=== PATIENT | male | born 1955 | race Hispanic/Latino ===

== ENCOUNTER 2020-01-02 06:45 | Day surgery (SDC) | payer MEDICARE ==
[2019-12-29 11:47] LABS: BASOPHILS % (AUTO) 0.3 % (0.0-5.0); EOSINOPHILS % (AUTO) 1.3 % (0.0-8.0); HEMATOCRIT 43.7 % (42-54); LYMPHOCYTES % (AUTO) 26.3 % (21.0-51.0); MEAN CORPUSCULAR HEMOGLOBIN 33.5 pg (27.0-33.0); MEAN CORPUSCULAR HGB CONC 34.1 g/dL (32.0-36.0); MEAN CORPUSCULAR VOLUME 98.2 fL (79-99); MONOCYTES % (AUTO) 7.6 % (3.0-13.0); NEUTROPHILS % (AUTO) 64.2 % (40.0-77.0); PLATELET COUNT (AUTO) 226 K/uL (130-400); RED BLOOD CELL COUNT(AUTO) 4.45 MIL/uL (4.50-6.20); WHITE BLOOD COUNT (AUTO) 6.9 K/uL (4.8-10.8)
[2019-12-29 12:01] LABS: CREATININE 0.9 mg/dL (0.5-1.5); POTASSIUM 3.9 mmol/L (3.5-5.1)
[2019-12-29 12:06] LABS: INR 1.04 (0.85-1.15); PARTIAL THROMBOPLASTIN TIME 27.9 SEC (26.3-35.5); PROTHROMBIN TIME 11.2 SEC (9.6-11.6)
[2020-01-01 13:14] VITALS: BP 148/77
[2020-01-02] VITALS (9 sets, daily range): BP systolic 112–160; BP diastolic 72–88
[~2020-01-02] VITALS: Ht 162.6 cm; Wt 93.1 kg
[2020-01-02] MEDS ORDERED: SODIUM CHLORIDE 0.9% 1000ML 1,000 ML IV SCH (08:00)
[2020-01-02] MEDS ORDERED: CLOP75TA14 PO (08:37)
[2020-01-02] MEDS ORDERED: DILT180C86 PO (08:37)
[2020-01-02] MEDS ORDERED: ATOR40TA71 PO (08:37)
[2020-01-02] MEDS ORDERED: APIX5TAB PO (08:37)
[2020-01-02] MEDS ORDERED: HEPARIN SODIUM 1000UNIT/ML 10ML VIAL ONE (09:34)
[2020-01-02] MEDS ORDERED: MIDAZOLAM HCL 1 MG/ML 2ML VIAL ONE ×2 (09:34→10:13)
[2020-01-02] MEDS ORDERED: MEPERIDINE-PF 25 MG/ML SYG ONE ×2 (09:34→10:13)
[2020-01-02] MEDS ORDERED: LIDOCAINE HCL 2% 20ML ONE (09:35)
== END 2020-01-02 16:00 | disposition home or self-care (01) ==
LOC: CANPRESDC → DAH 06:45 → EDSTATUS 07:00 → DAH 16:00
PROVIDERS: ATTEND Internal Medicine Cardiovascular Disease
DX: I48.3 Typical atrial flutter (principal); I10 Essential (primary) hypertension; I21.4 Non-ST elevation (NSTEMI) myocardial infarction; E11.59 Type 2 diabetes mellitus with other circulatory complications; E78.00 Pure hypercholesterolemia, unspecified; Z79.899 Other long term (current) drug therapy
CPT/HCPCS: 36415; 80048; 82948 ×2; 85025; 85610; 85730; 93005 ×4; 93613; 93621; 93653; A4215; A4216; A4221; A4222; A4223 ×3; A4606; A4649 ×2; A4663; C1730; C1732; C1894 ×2; J1644 ×2; J2175 ×2; J2250 ×2; J3490; J7030; 99156; 99157

== ENCOUNTER 2020-03-15 07:59 | Day surgery (SDC) | payer MEDICARE ==
[2020-03-12 12:54] LABS: BASOPHILS % (AUTO) 0.3 % (0.0-5.0); HEMATOCRIT 43.8 % (42-54); LYMPHOCYTES % (AUTO) 25.4 % (21.0-51.0); MEAN CORPUSCULAR HEMOGLOBIN 33.2 pg (27.0-33.0); MEAN CORPUSCULAR HGB CONC 33.6 g/dL (32.0-36.0); MEAN CORPUSCULAR VOLUME 98.9 fL (79-99); PLATELET COUNT (AUTO) 202 K/uL (130-400); RED BLOOD CELL COUNT(AUTO) 4.43 MIL/uL (4.50-6.20); RED CELL DISTRIBUTION WIDTH 12.4 % (11.0-15.5); WHITE BLOOD COUNT (AUTO) 7.7 K/uL (4.8-10.8)
[2020-03-12 13:01] LABS: CREATININE 0.9 mg/dL (0.5-1.5); POTASSIUM 3.7 mmol/L (3.5-5.1)
[2020-03-12 13:17] LABS: INR 0.99 (0.85-1.15); PARTIAL THROMBOPLASTIN TIME 24.3 SEC (26.3-35.5); PROTHROMBIN TIME 10.7 SEC (9.6-11.6)
[2020-03-14 12:33] VITALS: BP 150/83
[~2020-03-15] VITALS: Ht 162.6 cm; Wt 89.1 kg
[2020-03-15] VITALS (11 sets, daily range): BP systolic 118–195; BP diastolic 73–90
[~2020-03-15 07:59] MED LIST: ASPI-1197 PO; CLOP75TA14 PO; DILT180C86 PO; METF-444 PO; PHARMACY COMMUNICATION MISC SCH; SEMAGLUTIDE PO
[2020-03-15] MEDS ORDERED: SODIUM CHLORIDE 0.9% 1000ML 1,000 ML IV ONE (09:57)
[2020-03-15] MEDS ORDERED: NITROGLYCERIN 2 MG/VIAL VIAL IV ONE (10:00)
[2020-03-15] MEDS ORDERED: IOHEXOL 350 MG/ML 100ML INFUS..BTL IV ONE (10:00)
[2020-03-15] MEDS ORDERED: BIVALIRUDIN 250 MG/VIAL IV ONE ×2 (10:00→12:03)
[2020-03-15] MEDS ORDERED: MIDAZOLAM HCL 1 MG/ML 2ML VIAL ONE (10:00)
[2020-03-15] MEDS ORDERED: IOHEXOL-350 50ML VIAL IV ONE (10:00)
[2020-03-15] MEDS ORDERED: LIDOCAINE HCL 2% 20ML ONE (10:00)
[2020-03-15] MEDS ORDERED: FENTANYL CITRATE PF 50 MCG/1 ML 2ML VIAL ONE (10:31)
[2020-03-15] MEDS ORDERED: ASPIRIN 325MG EC TAB 325 MG TABLET.DR PO ONE (11:04)
[2020-03-15] MEDS ORDERED: PRASUGREL HCL 10 MG TABLET ONE (11:04)
[2020-03-15] MEDS ORDERED: METOPROLOL TARTRATE 1 MG/ML 5ML VIAL IV ONE (11:30)
[2020-03-15] MEDS ORDERED: NITROGLYCERIN 4.1 GM SPRAY TL ONE (11:36)
[2020-03-15] MEDS ORDERED: IOHEXOL-350 75 ML VIAL IV ONE (12:10)
[2020-03-15] MEDS ORDERED: SODIUM CHLORIDE 0.9% 1000ML 1,000 ML IV SCH (13:30)
[2020-03-15] MEDS ORDERED: DEXTROSE 50%-WATER 50 ML DISP.SYRIN IV PRN (13:30)
--- NOTE | 2020-03-15 13:45 | NUR ---
POST CATH RECEIVED REPORT FROM PADMINI SOLORZANO RN. RECEIVED PT FROM CATERINA CHIRINOS. PT IN SUPINE POSITION IN NO DISTRESS. RT GROIN FREE FROM BLEEDING OR HEMATOMA. PT CALL LIGHT WITH IN REACH. PT CONNECTED TO LEGAL DEPARTMENT MANAGER. WILL CONTINUE TO MONITOR PT
--- NOTE | 2020-03-15 14:05 | NUR ---
MD DR MOODY IN TO SEE PT
[2020-03-15] MEDS ORDERED: INSULIN HUMULIN R 100 UNIT/ML 3ML SQ SCH (16:30)
--- NOTE | 2020-03-15 18:30 | NUR ---
discharge spouse given d/c instructions. pt given discharge handouts and script for meds. pt also given stent cards. pt taken out via w/c by abimbola tracy rn. rt groin free from bleeding and hematoma. pt was instructed to go home and rest in bed as per md instructions. pt voiced understanding
== END 2020-03-15 18:30 | disposition home or self-care (01) ==
LOC: DAH 07:59
PROVIDERS: ATTEND Internal Medicine Cardiovascular Disease
DX: R94.39 Abnormal result of other cardiovascular function study (principal); I48.3 Typical atrial flutter; I21.4 Non-ST elevation (NSTEMI) myocardial infarction; I25.10 Atherosclerotic heart disease of native coronary artery without angina pectoris; I10 Essential (primary) hypertension; E11.9 Type 2 diabetes mellitus without complications; Z88.6 Allergy status to analgesic agent; E86.0 Dehydration; Z79.01 Long term (current) use of anticoagulants; Z79.899 Other long term (current) drug therapy
CPT/HCPCS: 36415; 71045; 80048; 82948 ×2; 85025; 85610; 85730; 93005; 93458; 96360; 96361; A4215; A4216; A4221; A4222; A4223 ×3; A4606; A4663; C1725 ×2; C1760; C1769 ×2; C1874 ×2; C1887 ×3; C1894 ×2; C9600 ×2; J0583 ×2; J1644 ×2; J2250; J3010; J3490 ×3; J7030; Q9965 ×2; Q9967 ×3; 99156; 99157